=== PATIENT | male | born 1970 | race Asian ===

== ENCOUNTER 2018-09-03 09:38 | Inpatient (IN) | payer OTHER ==
[~2018-09-03] VITALS: Ht 167.6 cm; Wt 80.4 kg
[2018-09-03] VITALS (8 sets, daily range): BP systolic 144–184; BP diastolic 85–100
[2018-09-03] MEDS ORDERED: NITROGLYCERIN OINT 2%, 1GM TP ONE ×2 (10:21→10:30)
[2018-09-03] MEDS ORDERED: hydrALAzine 20 MG/ML, 1ML ONE ×2 (10:21→11:33)
[2018-09-03 10:29] LABS: BASOPHILS # (AUTO) 0.09 x10^3/uL (0-0.1); BASOPHILS % (AUTO) 1 % (0-1); EOSINOPHILS # (AUTO) 0.12 x10^3/uL (0-0.4); EOSINOPHILS % (AUTO) 1 % (1-7); LYMPHOCYTES # (AUTO) 1.04 x10^3/uL (1-3.4); LYMPHOCYTES % (AUTO) 12 % (22-44); MD NO; MEAN CORPUSCULAR HEMOGLOBIN 30.2 pg (27.5-34.5); MEAN CORPUSCULAR HGB CONC 34.4 g/dL (33.2-36.2); MEAN PLATELET VOLUME 8.9 fL (7.4-10.4); MONOCYTES % (AUTO) 5 % (2-9); NEUTROPHILS # (AUTO) 7.23 x10^3/uL (1.8-6.8); NEUTROPHILS % (AUTO) 81 % (42-75); PLATELET COUNT 201 x10^3/uL (130-400); RED BLOOD COUNT 4.56 x10^6/uL (4.38-5.82); RED CELL DISTRIBUTION WIDTH 13.1 % (9.4-14.8)
[2018-09-03] MEDS ORDERED: hydrALAzine 20 MG/ML, 1ML IV ONE ×2 (10:30→11:30)
[2018-09-03 10:41] LABS: ALBUMIN 3.3 g/dL (3.4-5.0); ANION GAP 7 mmol/L (5-15); CALCIUM 7.6 mg/dL (8.5-10.1); CHLORIDE 112 mmol/L (98-107)
[2018-09-03 10:47] LABS: ALANINE AMINOTRANSFERASE 28 U/L (12-78); ALKALINE PHOSPHATASE 124 U/L (45-117); BILIRUBIN,TOTAL 0.4 mg/dL (0.2-1.0); CREATININE 4.07 mg/dL (0.7-1.3); TOTAL PROTEIN 7.5 g/dL (6.4-8.2); TROPONIN I 0.019 ng/mL (0.000-0.045)
[2018-09-03] MEDS ORDERED: SODIUM CHLORIDE FLUSH 10ML SYR IVF ONE (11:00)
[2018-09-03] MEDS ORDERED: SODIUM CHLORIDE 0.9% 1,000 ML IV ONE (11:19)
[2018-09-03] MEDS ORDERED: AMLODIPINE 5 MG TABLET ONE (11:57)
[2018-09-03] MEDS ORDERED: ACETAMINOPHEN 325 MG TABLET PO PRN (12:00)
[2018-09-03] MEDS ORDERED: ONDANSETRON 2MG/ML, 2ML IVPush PRN (12:00)
[2018-09-03] MEDS ORDERED: AMLODIPINE 5 MG TABLET PO ONE (12:00)
[2018-09-03] MEDS ORDERED: hydrALAzine 20 MG/ML, 1ML IVPush PRN (12:00)
[2018-09-03] MEDS ORDERED: LABETALOL 5MG/ML, 20ML IVPush PRN ×3 (12:00→13:00)
[2018-09-03] MEDS: HEPARIN 5,000 UNITS/ML, 1ML SQ SCH ×2 (13:46→21:26)
[2018-09-03 14:43] LABS: CALCIUM 7.6 mg/dL (8.5-10.1)
[2018-09-03 16:03] LABS: INTERNATIONAL NORMALIZED RATIO 0.96 (0.93-1.1); PROTHROMBIN TIME 10.2 Seconds (9.6-11.5)
[2018-09-03 16:06] LABS: TROPONIN I 0.095 ng/mL (0.000-0.045)
[2018-09-03] MEDS: SODIUM CHLORIDE 0.9% 1,000 ML IV SCH (16:07)
[2018-09-03] MEDS: LABETALOL 200 MG TABLET PO SCH (16:57)
[2018-09-03 18:52] LABS: ANION GAP 9 mmol/L (5-15); CALCIUM 7.2 mg/dL (8.5-10.1); CHLORIDE 110 mmol/L (98-107); CREATININE 3.84 mg/dL (0.7-1.3)
[2018-09-03] MEDS: CALCIUM CARBONATE 500 MG TABLET PO SCH (21:26)
[2018-09-03 21:29] LABS: TROPONIN I 0.112 ng/mL (0.000-0.045)
[2018-09-03 22:04] LABS: MICROSCOPIC AUTO
[2018-09-03 22:09] LABS: CHLORIDE,URINE RANDOM 61 mmol/L; POTASSIUM,URINE RANDOM 21 mmol/L; SODIUM,URINE RANDOM 64 mmol/L
[2018-09-03 22:12] LABS: CULTURE INDICATED? YES
[2018-09-03 22:16] LABS: CREATININE,URINE RANDOM 82.4 mg/dL
[2018-09-03 22:31] LABS: OSMOLALITY,URINE 352 mOsm/kg (500-850)
[2018-09-04 00:23] VITALS: BP 144/93
[2018-09-04] MEDS: SODIUM CHLORIDE 0.9% 1,000 ML IV SCH ×2 (01:51→07:43)
[2018-09-04 05:09] LABS: BASOPHILS # (AUTO) 0.06 x10^3/uL (0-0.1); BASOPHILS % (AUTO) 1 % (0-1); EOSINOPHILS # (AUTO) 0.09 x10^3/uL (0-0.4); EOSINOPHILS % (AUTO) 1 % (1-7); LYMPHOCYTES # (AUTO) 1.17 x10^3/uL (1-3.4); LYMPHOCYTES % (AUTO) 11 % (22-44); MD NO; MEAN CORPUSCULAR HEMOGLOBIN 30.5 pg (27.5-34.5); MEAN CORPUSCULAR HGB CONC 34.4 g/dL (33.2-36.2); MEAN CORPUSCULAR VOLUME 88.5 fL (81-97); MEAN PLATELET VOLUME 9.3 fL (7.4-10.4); MONOCYTES % (AUTO) 8 % (2-9); NEUTROPHILS # (AUTO) 8.14 x10^3/uL (1.8-6.8); NEUTROPHILS % (AUTO) 79 % (42-75); PLATELET COUNT 161 x10^3/uL (130-400); RED BLOOD COUNT 3.69 x10^6/uL (4.38-5.82); RED CELL DISTRIBUTION WIDTH 12.8 % (9.4-14.8)
[2018-09-04 05:17] LABS: ALANINE AMINOTRANSFERASE 24 U/L (12-78); ALBUMIN 2.8 g/dL (3.4-5.0); ANION GAP 10 mmol/L (5-15); CALCIUM 6.8 mg/dL (8.5-10.1); CHLORIDE 113 mmol/L (98-107); CREATININE 3.92 mg/dL (0.7-1.3)
[2018-09-04 05:19] LABS: ALKALINE PHOSPHATASE 98 U/L (45-117); BILIRUBIN,TOTAL 0.5 mg/dL (0.2-1.0); TOTAL PROTEIN 6.1 g/dL (6.4-8.2)
[2018-09-04] MEDS: HEPARIN 5,000 UNITS/ML, 1ML SQ SCH ×3 (05:52→21:04)
[2018-09-04] MEDS ORDERED: ASPIRIN 325 MG TABLET EC PO SCH (06:00)
[2018-09-04 07:47] VITALS: BP_SYST 150; BP_SYST 151; BP_DIAS 93; BP_DIAS 97
[2018-09-04] MEDS ORDERED: ERGOCALCIFEROL 50,000 UNIT CAPSULE PO SCH (08:00)
[2018-09-04] MEDS: CALCIUM CARBONATE 500 MG TABLET PO SCH (08:57)
[2018-09-04] MEDS: AMLODIPINE 5 MG TABLET PO SCH (08:57)
[2018-09-04] MEDS: LABETALOL 200 MG TABLET PO SCH (08:57)
[2018-09-04] MEDS: LISINOPRIL 10 MG TABLET PO SCH ×2 (12:48→21:04)
[2018-09-04] MEDS: CALCITRIOL 0.25 MCG CAPSULE PO SCH (12:48)
[2018-09-04 15:47] VITALS: BP_SYST 135; BP_SYST 139; BP_DIAS 87; BP_DIAS 90
[2018-09-04] MEDS: FERROUS SULFATE 325 MG TABLET PO SCH (15:58)
[2018-09-04 19:43] VITALS: BP_SYST 130; BP_SYST 147; BP_DIAS 78; BP_DIAS 87
[2018-09-04] MEDS: ATORVASTATIN 40 MG TABLET PO SCH (21:04)
[2018-09-05 01:25] VITALS: BP_SYST 158; BP_SYST 163; BP_DIAS 91; BP_DIAS 92
[2018-09-05 04:56] LABS: BASOPHILS % (AUTO) 1 % (0-1); EOSINOPHILS % (AUTO) 3 % (1-7); LYMPHOCYTES # (AUTO) 1.27 x10^3/uL (1-3.4); LYMPHOCYTES % (AUTO) 18 % (22-44); MD NO; MEAN CORPUSCULAR HEMOGLOBIN 30.3 pg (27.5-34.5); MEAN CORPUSCULAR HGB CONC 34.4 g/dL (33.2-36.2); MEAN CORPUSCULAR VOLUME 88.3 fL (81-97); MEAN PLATELET VOLUME 9.4 fL (7.4-10.4); MONOCYTES # (AUTO) 0.61 x10^3/uL (0.2-0.8); MONOCYTES % (AUTO) 9 % (2-9); NEUTROPHILS # (AUTO) 4.93 x10^3/uL (1.8-6.8); NEUTROPHILS % (AUTO) 69 % (42-75); PLATELET COUNT 149 x10^3/uL (130-400); RED BLOOD COUNT 3.66 x10^6/uL (4.38-5.82); RED CELL DISTRIBUTION WIDTH 13.2 % (9.4-14.8)
[2018-09-05 05:02] LABS: ALBUMIN 2.7 g/dL (3.4-5.0); ANION GAP 11 mmol/L (5-15); CALCIUM 7.3 mg/dL (8.5-10.1); CHLORIDE 113 mmol/L (98-107); CREATININE 4.03 mg/dL (0.7-1.3)
[2018-09-05] MEDS: HEPARIN 5,000 UNITS/ML, 1ML SQ SCH (05:09)
[2018-09-05] MEDS: ASPIRIN 81 MG TABLET EC PO SCH (05:09)
[2018-09-05 07:22] VITALS: BP_SYST 147; BP_SYST 153; BP_DIAS 88; BP_DIAS 94
[2018-09-05 08:14] LABS: C-REACTIVE PROTEIN, QUANT 2.8 mg/dL (0.02-0.49)
[2018-09-05] MEDS: CALCITRIOL 0.25 MCG CAPSULE PO SCH (08:50)
[2018-09-05] MEDS: FERROUS SULFATE 325 MG TABLET PO SCH ×2 (08:50→17:38)
[2018-09-05] MEDS: AMLODIPINE 5 MG TABLET PO SCH (08:50)
[2018-09-05] MEDS: LISINOPRIL 10 MG TABLET PO SCH (08:51)
[2018-09-05 09:13] LABS: HCT (SEDRATE) 32.3 % (39.2-51.8)
[2018-09-05] MEDS: FUROSEMIDE 40 MG TABLET PO SCH (12:11)
[2018-09-05 12:43] VITALS: BP_SYST 158; BP_SYST 167; BP_DIAS 94; BP_DIAS 96
[2018-09-05] MEDS: ATORVASTATIN 40 MG TABLET PO SCH (20:02)
[2018-09-05] MEDS: LISINOPRIL 20 MG TABLET PO SCH (20:04)
[2018-09-05 20:18] VITALS: BP_SYST 160; BP_SYST 163; BP_DIAS 89; BP_DIAS 98
[2018-09-06 01:53] VITALS: BP_SYST 158; BP_SYST 165; BP_DIAS 89; BP_DIAS 95
[2018-09-06 04:32] LABS: BASOPHILS # (AUTO) 0.06 x10^3/uL (0-0.1); BASOPHILS % (AUTO) 1 % (0-1); EOSINOPHILS # (AUTO) 0.31 x10^3/uL (0-0.4); EOSINOPHILS % (AUTO) 4 % (1-7); LYMPHOCYTES # (AUTO) 1.27 x10^3/uL (1-3.4); LYMPHOCYTES % (AUTO) 16 % (22-44); MD NO; MEAN CORPUSCULAR HEMOGLOBIN 30.2 pg (27.5-34.5); MEAN CORPUSCULAR HGB CONC 33.8 g/dL (33.2-36.2); MEAN CORPUSCULAR VOLUME 89.2 fL (81-97); MONOCYTES # (AUTO) 0.61 x10^3/uL (0.2-0.8); MONOCYTES % (AUTO) 8 % (2-9); NEUTROPHILS # (AUTO) 5.77 x10^3/uL (1.8-6.8); NEUTROPHILS % (AUTO) 72 % (42-75); PLATELET COUNT 172 x10^3/uL (130-400); RED BLOOD COUNT 4.06 x10^6/uL (4.38-5.82); RED CELL DISTRIBUTION WIDTH 13.3 % (9.4-14.8)
[2018-09-06 04:43] LABS: ALBUMIN 2.9 g/dL (3.4-5.0); ANION GAP 11 mmol/L (5-15); CALCIUM 7.9 mg/dL (8.5-10.1); CHLORIDE 113 mmol/L (98-107)
[2018-09-06 04:46] LABS: ALANINE AMINOTRANSFERASE 32 U/L (12-78); ALKALINE PHOSPHATASE 110 U/L (45-117); BILIRUBIN,TOTAL 0.3 mg/dL (0.2-1.0); CREATININE 4.15 mg/dL (0.7-1.3); TOTAL PROTEIN 6.7 g/dL (6.4-8.2)
[2018-09-06] MEDS: ASPIRIN 81 MG TABLET EC PO SCH (05:03)
[2018-09-06] MEDS: FERROUS SULFATE 325 MG TABLET PO SCH ×2 (08:00→15:36)
[2018-09-06 08:08] VITALS: BP_SYST 145; BP_SYST 156; BP_DIAS 79; BP_DIAS 99
[2018-09-06] MEDS: FUROSEMIDE 40 MG TABLET PO SCH (08:52)
[2018-09-06] MEDS: AMLODIPINE 5 MG TABLET PO SCH (08:53)
[2018-09-06] MEDS: LISINOPRIL 20 MG TABLET PO SCH (08:53)
[2018-09-06] MEDS: CALCITRIOL 0.25 MCG CAPSULE PO SCH (08:53)
[2018-09-06 09:49] VITALS: BP 147/96
[2018-09-06 12:28] VITALS: BP_SYST 148; BP_SYST 165; BP_DIAS 87; BP_DIAS 99
[2018-09-06] MEDS ORDERED: LISI-170 PO (14:29)
[2018-09-06] MEDS ORDERED: FURO40TA6 PO (14:29)
[2018-09-06] MEDS ORDERED: AMLO5TAB7 PO (14:29)
[2018-09-06] MEDS ORDERED: ATOR40TA78 PO (14:29)
[2018-09-06] MEDS ORDERED: ERGO500017 PO (14:29)
[2018-09-06] MEDS ORDERED: FERR-51 PO (14:29)
[2018-09-06] MEDS ORDERED: LISINOPRIL 20 MG TABLET PO SCH (21:00)
== END 2018-09-06 17:20 | disposition home or self-care (01) | DRG 683 ==
LOC: ED 11:18 → EDIP 11:19 → ED 11:59 → 5SO 12:29 → DCLOUNGE 09-06 16:52
PROVIDERS: ADMIT Hospitalist; ATTEND Hospitalist
DX: N17.9 Acute kidney failure, unspecified (principal); E44.1 Mild protein-calorie malnutrition; E87.2 Acidosis; I16.1 Hypertensive emergency; D64.9 Anemia, unspecified; N25.81 Secondary hyperparathyroidism of renal origin; E55.9 Vitamin D deficiency, unspecified; E87.6 Hypokalemia; I12.9 Hypertensive chronic kidney disease with stage 1 through stage 4 chronic kidney disease, or unspecified chronic kidney disease; N18.9 Chronic kidney disease, unspecified; N25.0 Renal osteodystrophy; Z68.28 Body mass index [BMI] 28.0-28.9, adult
CPT/HCPCS: 36415; 71045; 74176; 74181; 76770; 78582; 80048; 80053; 80069; 81001; 82306; 82310; 82330; 82436; 82550; 82570; 82728; 83540; 83550; 83615; 83735; 83880; 83935; 83970; 84100; 84133; 84156; 84300; 84484; 84550; 85025; 85379; 85610; 85651; 85730; 86140; 87077; 87086; 87186; 87205; 93005; 93306; G0378; J1644; A9540; A9558; C9898; J0360; J7030

== ENCOUNTER 2018-09-13 07:35 | Day surgery (SDC) | payer OTHER ==
[~2018-09-13] VITALS: Ht 167.6 cm; Wt 75.1 kg
[~2018-09-13 07:35] MED LIST: AMLO-150 PO; ATOR40TA78 PO; ERGO500017 PO; FERR-51 PO; FURO40TA6 PO; LISI-170 PO
[2018-09-13] MEDS ORDERED: SODIUM CHLORIDE 0.9% 1,000 ML IV SCH (07:48)
[2018-09-13 08:05] VITALS: BP 134/86
[2018-09-13 08:45] LABS: INTERNATIONAL NORMALIZED RATIO 1.01 (0.93-1.1); PROTHROMBIN TIME 10.7 Seconds (9.6-11.5)
[2018-09-13] MEDS ORDERED: MIDAZOLAM 1 MG/ML, 5ML ONE (08:57)
[2018-09-13] MEDS ORDERED: FLUMAZENIL 0.1 MG/1 ML, 5ML ONE (08:57)
[2018-09-13] MEDS ORDERED: FENTANYL PF 100 MCG/2ML ONE (08:57)
[2018-09-13] MEDS ORDERED: NALOXONE 1 MG/ML, 2ML ONE (08:57)
[2018-09-13] MEDS ORDERED: LIDOCAINE-MPF 1%, 5ML ONE (09:01)
== END 2018-09-13 12:05 | disposition home or self-care (01) ==
LOC: OUT 07:35
PROVIDERS: ATTEND Internal Medicine Nephrology
DX: I12.9 Hypertensive chronic kidney disease with stage 1 through stage 4 chronic kidney disease, or unspecified chronic kidney disease (principal); N18.9 Chronic kidney disease, unspecified; N17.9 Acute kidney failure, unspecified; D64.9 Anemia, unspecified
CPT/HCPCS: 36415; 50200; 77012; 85610; 88300; 88329; 99156; J2250; J3010; J7030; 99157; J2310

== ENCOUNTER → 2021-05-27 | Outpatient (CLI) | payer OTHER | END | disposition home or self-care (01) | LOC: RAD 11:02 | PROVIDERS: ATTEND Family Medicine | DX: M54.2 Cervicalgia (principal) | CPT/HCPCS: 72040 ==